=== PATIENT | male | born 1940 | race Caucasian/White ===

== ENCOUNTER 2024-03-08 12:51 | Outpatient (OUT) | payer MEDICARE, SELFPAY ==
--- NOTE | 2024-03-07 13:58 | V.VEINS.HP ---
Vital Signs 03/08/24 13:01 Height 5 ft Weight 250 kg BMI 107.6 BP 124/64 BP Location Left Brachial BP Position Sitting BP Cuff Size Adult BP Source Manual Cuff Respiration 18 Pulse 74 Pulse Oximetry (%) 95 Comment The patient's blood pressure is elevated. Varicose Veins Patient is an 83 year old male in this day as a referral from Dr. Davidson. Patient c/o left lower leg pain with a red raised rash. Patient states that he has experienced multiple episodes of cellulitis along with open, slow healing wounds to this left leg. He has been seen by multiple wound clinics and they are able to heal the wounds over time, then the cellulitis returns shortly afterward. Patient has worn bilateral leg knee high compression stockings for approximately 2 years with some relief. Patient c/o bilateral leg pain and swelling along with weakness for approximately 5 years. 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 Varicose vein history noted via patient's mother. Patieint rates the pain at a 2 on a scale of 1-10. Patient takes Ibuprofen for the pain. . IDennys MD personally performed the services described in this documentation, as scribed by Bello Stewart RN in my presence and it is both accurate and complete. IBello RN, am scribing for, and in the presence of, Dr. Dennys Schaefer and in the presence of the patient. thigh: bilateral (left greater than right leg), knee: bilateral, calf: bilateral, ankle: bilateral and diop: bilateral aching, cramping and dull 3 5 years Worsened in recent months: Yes standing analgesics (Ibuprofen), elevating extremities and compression stockings Reports muscle spasms of leg, erythema, fatigue, heaviness, limb pain, edema and leg edema History of lower extremity trauma: No Superficial thrombophlebitis: No Family history of varicose veins: yes (Patients mother) Has patient had previous lower extremity venous surgery: No Patient has previously received the following treatment(s) for lower extremity varicose veins: Reports none Does patient have a history of : not applicable Has patient had lower extremity venous scan with relux testing: No Support hose used: Yes (2 years) Problems walking or doing physical activity: Yes How does it affect you: legs very weak, troubles standing in one place Do you walk much: No (due to weakness) Do you stand much: No (due to weakness) Review of Systems ROS Narrative I, Dennys Schaefer MD personally performed the services described in this documentation, as scribed by Bello Stewart RN in my presence and it is both accurate and complete. I, Bello Stewart RN, am scribing for, and in the presence of, Dr. Dennys Schaefer and in the presence of the patient. Status of ROS 10 or more systems reviewed and unremarkable except as noted in history and below Cardiovascular Reports: edema Integumentary/Breast Reports: itching, redness, skin pain, skin tenderness, skin swelling and changes in skin color Neurological Reports: weakness in extremities Hematologic/Lymphatic Reports: easy bruising and easy bleeding PFSH PFSH Medical History (Updated 03/08/24 @ 13:25 by Bello Stewart) Hernia ?K46.9 - Unspecified abdominal hernia without obstruction or gangrene (ICD-10) Sciatic leg pain ?M54.30 - Sciatica, unspecified side (ICD-10) Obesity ?E66.9 - Obesity, unspecified (ICD-10) CHF (congestive heart failure) ?I50.9 - Heart failure, unspecified (ICD-10) Atrial fibrillation ?I48.91 - Unspecified atrial fibrillation (ICD-10) COPD (chronic obstructive pulmonary disease) ?J44.9 - Chronic obstructive pulmonary disease, unspecified (ICD-10) Hypertension ?I10 - Essential (primary) hypertension (ICD-10) Varicose veins of bilateral lower extremities with pain ?I83.813 - Varicose veins of bilateral lower extremities with pain (ICD-10) Surgical History (Updated 03/08/24 @ 13:25 by Bello Stewart) History of arthroplasty of left knee ?Z96.652 - Presence of left artificial knee joint (ICD-10) Family History (Updated 03/08/24 @ 13:27 by Bello Stewart) Mother Varicose veins of bilateral lower extremities with pain Grandmother Heart disease Other Family history of cancer Family history of hypertension Social History (Updated 03/08/24 @ 13:28 by Bello Stewart) Within the past year, how often did you have a drink containing alcohol: never Score interpretation: A score less than 4 is consistent with normal alcohol consumption. Smoking status: Former smoker What tobacco products do you use: cigarettes Non-prescribed substance use: denies use Meds Home Medications and Allergies Home Medications ?Medication ?Instructions ?Recorded ?Confirmed ?Type albuterol sulfate .ROUTE 03/08/24 History amlodipine .ROUTE atrial fibrillation 03/08/24 History budesonide-formoterol inhalation 03/08/24 History furosemide 40 mg tablet 40 mg PO DAILY 03/08/24 03/08/24 History metoprolol tartrate 50 mg tablet 50 mg PO DAILY 03/08/24 03/08/24 History (Lopressor) Allergies Allergy/AdvReac Type Severity Reaction Status Date / Time [id number] Reductase Allergy Mild Rash Verified 03/08/24 13:02 Inhibitor Sulfa (Sulfonamide Allergy Mild Rash Verified 03/08/24 13:02 Antibiotics) Exam Narrative Exam Narrative: Dennys Funk MD personally performed the services described in this documentation, as scribed by Bello Stewart RN in my presence and it is both accurate and complete. Bello Funk RN, am scribing for, and in the presence of, Dr. Dennys Schaefer and in the presence of the patient. Constitutional Documenting provider has reviewed patient's vital signs: yes Common normals: oriented x3 Nutritional appearance: overweight Cardio Peripheral pulses: dorsalis pedis pulses present Extremity Common normals: normal capillary refill General: edema Right lower extremity: lower leg Right lower leg: inspection and palpation Left lower extremity: lower leg Left lower leg: inspection and palpation Neuro Common normals: oriented x3 Results Additional Findings Additional findings: Bilateral leg reflux u/s reveals right great saphenous venous insufficiency with associated dilation along with right anterior accessory saphenous vein and left leg perforating vein venous insufficiency with dilation, and lastly, bilateral leg branch saphenous truncal varicosities. Dennys Funk MD personally performed the services described in this documentation, as scribed by Bello Stewart RN in my presence and it is both accurate and complete. Bello Funk RN, am scribing for, and in the presence of, Dr. Dennys Schaefer and in the presence of the patient. Assessment and Plan Assessment and Plan (1) Varicose veins of bilateral lower extremities with pain: Plan Patient would like to review plan of care with his PCP, then move forward with EVLT of left GSV followed left leg perforating vein near old wound sites, followed by EVLT of right AASV. Once EVLT's complete, move forward with microfoam chemical ablation bilateral leg branch saphenous varicosities. Dennys Funk MD personally performed the services described in this documentation, as scribed by Bello Stewart RN in my presence and it is both accurate and complete. Bello Funk RN, am scribing for, and in the presence of, Dr. Dennys Schaefer and in the presence of the patient. Procedures Procedure Instructions Procedures Dr. Schaefer examines patient and reviews results of bilateral leg reflux. Patient and Dr. Schaefer create plan of care Dennys Funk MD personally performed the services described in this documentation, as scribed by Bello Stewart RN in my presence and it is both accurate and complete. Bello Funk RN, am scribing for, and in the presence of, Dr. Dennys Schaefer and in the presence of the patient.
--- NOTE | 2024-03-07 13:59 | P.DS_ITS ---
Discharge Plan Discharge Disposition: Home, Self-Care Follow Up Appointments: patient to f/u once her reviews with his PCP Plan of Treatment: EVLT of left GSV, perforating vein, and right AASV, followed by microfoam chemical ablation bilateral leg branch saphenous varicosities Patient Instructions: Endovenous Ablation (GEN) Print Language: [place] Discharge Date/Time: 03/08/24 14:46
[2024-03-08 13:01] VITALS: BP 124/64; PULSE 74; O2SAT 95; BMI 107.6
--- NOTE | 2024-03-08 13:05 | VEIN_ITS ---
Patient Name: GERHARD CRAIG MR#: [id number] : 1940 Exam Date: 03/08/2024 Ordering Doctor: DR FABIAN DANGELO M.D. RADIOLOGY REPORT PROCEDURE: VC EXT VENOUS REFLUX JULIANN LMTD COMPARISON: None. INDICATIONS: I83.813 - Varicose veins of bilateral lower extremities w... TECHNIQUE: Duplex imaging of the lower extremity to assess the deep and superficial venous system for the presence of deep or superficial venous incompetence and to document the location and severity of disease. The study includes evaluation of the great saphenous vein (GSV), anterior accessory saphenous vein (AASV) and small saphenous vein (SSV). Patient scanned in reverse Trendelenburg and standing. FINDINGS: RIGHT LOWER EXTREMITY: Saphenofemoral Junction Reflux: Yes 6.4mm 0.8 sec GSV: Diam (mm) Reflux/ Time (sec) Proximal Thigh 2.6 Yes 1.2 Mid Thigh N/A Distal Thigh 1.8 No Prox Calf 1.9 No Mid Calf 1.9 No Saphenopopliteal Junction Reflux: 2.1mm Yes 0.7 SSV: Proximal Calf 3.2 Yes 0.9 Mid Calf 2.8 No AASV: Proximal Thigh 6.2 Yes 2.7 Mid Thigh 4.0 Yes 1.8 Distal Thigh Thrombi: No acute or chronic thrombus visualized Compressibility: Normal Flow: Normal Preforator:Dist/med calf 2.9mm with 1.9s reflux. Tech Note: Incompetent AASV. Arterial flow visualized at mid GSV, mid GSV is non compressible. Patent varicose vein prox/med calf 3.3mm with 0.7s reflux. Patent varicose vein medial knee 1.8mm with 0.8s reflux. LEFT LOWER EXTREMITY: Saphenofemoral Junction Reflux: Yes 8.6 mm 2.3 sec GSV: Diam (mm) Reflux/Time (sec) Proximal Thigh 6.9 Yes 1.8 Mid Thigh 5.3 Yes 1.5 Distal Thigh 3.9 Yes 0.9 Prox Calf 2.5 No Mid Calf 3.6 Yes 1.0 Saphenopopliteal Junction Relux: 3.1 mm Yes 0.6 SSV: Proximal Calf 2.7 No Mid Calf 2.6 No AASV: Proximal Thigh 3.2 No Mid Thigh 1.9 No Distal Thigh Thrombi: No acute or chronic thrombus visualized Compressibility: Normal Flow: Normal Creative Project Manager: Dist/med calf 3.9mm with 1.2s reflux. Tech Note: Incompetent GSV. GSV is extrafascial from distal thigh to mid calf. Patent varicose vein 4.7mm with 0.5s reflux. Patent varicose vein medial knee 4.1mm with 0.8s reflux. Patent varicose vein 5.0mm with 0.6s reflux. CONCLUSION: 1. Abnormally dilated and incompetent right anterior accessory saphenous vein and left great saphenous vein along with associated incompetent branch saphenous varicosities. 2. Abnormally dilated incompetent senior principal software engineer vein within distal medial left calf in region of patient's recurrent and slow healing wound. Dictated by: Fabian Dangelo M.D. on 03/08/2024 at 14:18 Approved by: Fabian Dangelo M.D. on 03/08/2024 at 14:43
--- NOTE | 2024-03-08 13:05 | VEIN_ITS ---
Patient Name: GERHARD CRAIG MR#: [id number] : 1940 Exam Date: 03/08/2024 Ordering Doctor: DR FABIAN DANGELO M.D. RADIOLOGY REPORT PROCEDURE: [facility] - OFFICE VISIT INITIAL COMPARISON: None. PROGRESS NOTES: [age] year old male who presents with a 5 year history of lower extremity pain, swelling, recurring slow healing wounds, cellulitis. The patient's left leg symptoms are worse than the right. There has been a progression of symptoms over time. This increases with prolonged leg dependency. The patient describes an improvement with compression stockings, elevation, and ibuprofen. The patient denies any signs and symptoms to suggest arterial ischemia. The patient describes a family history of varicose veins on maternal side. The patient has drinking and smoking history of : former smoker; no alcohol consumption.. Patient has a past medical history significant for congestive heart failure, COPD. The patient denies a history of deep venous thrombus or pulmonary embolus. See separate history and physical for medication list. No prior treatment for varicose or spider veins. Current use of compression stockings. After review of nurse notes, history and physical exam I discussed at length the pathophysiology of venous hypertension and possible treatments, therapies and strategies available. We discussed at length the importance of elevating the lower extremities above the level of the heart, increased physical activity and compression stocking use. Ultrasound venous reflux study performed today was discussed at length with the patient. The report demonstrates abnormally dilated incompetent right anterior accessory saphenous vein and left great saphenous vein. Incompetent branch saphenous varicosities bilaterally. Dilated and incompetent left calf rougher helper vein and region of reoccurring slow healing wound. PHYSICAL EXAM: The right leg demonstrates small varicosities, scattered spider veins, no ulceration, mild edema, no skin discoloration. The left leg demonstrates several varicosities, scattered spider veins, no open active ulceration at this time, moderate edema, distal lower extremity skin discoloration. Both thighs, legs and feet were symmetrically warm to the touch. Good posterior tibial and dorsalis pedis pulses were present bilaterally. VEIN/[facility] IMPRESSION: 1. Bilateral lower extremity venous insufficiency 2. Bilateral lower extremity varicose veins 3. Mild-moderate left lower extremity subcutaneous edema 4. No flow significant arterial disease 5. CEAP: C5, EC, AP, IA PLAN: 1. Continued use of compression stockings 2. Elevated legs and increased physical activity symptomatic relief 3. Endovenous laser ablation of right anterior accessory saphenous vein, left great saphenous vein, and left rougher helper veins. 4. Microfoam chemical ablation of incompetent branch saphenous varicosities bilaterally. Nurse notes, history and physical were reviewed and confirmed, see attached forms. The nurse was present throughout the physical exam and consultation Dictated by: Fabian Dangelo M.D. on 03/08/2024 at 14:43 Approved by: Fabian Dangelo M.D. on 03/08/2024 at 14:52
== END 2024-03-08 14:46 | disposition home or self-care (01) ==
LOC: VC 12:51
PROVIDERS: PCP Podiatrist Foot & Ankle Surgery; Visit Provider Podiatrist Foot & Ankle Surgery
DX: I87.2 Venous insufficiency (chronic) (peripheral) (principal); I83.813 Varicose veins of bilateral lower extremities with pain
CPT/HCPCS: 93970; G0463